=== PATIENT | male | born 1990 | race Caucasian/White ===

== ENCOUNTER 2025-02-13 23:35 | Emergency (ER) | payer OTHER ==
[~2025-02-13] VITALS: Ht 175.3 cm; Wt 90.7 kg
[2025-02-13 23:59] VITALS: BP 127/85
[2025-02-14] MEDS: IV NORMAL SALINE 1000 ML BAG IV ONE (00:04)
[2025-02-14] MEDS: diphenhydrAMINE 50 MG/1 ML VIAL IV ONE ×2 (00:07→01:32)
[2025-02-14] MEDS: ACETAMINOPHEN 500 MG TABLET PO ONE (00:08)
[2025-02-14 00:12] LABS: PLATELET COUNT (AUTO) 221 K/uL (152-348); RED BLOOD CELL COUNT(AUTO) 4.70 MIL/uL (4.06-5.63); RED CELL DISTRIBUTION WIDTH 12.9 % (12.1-16.2); WHITE BLOOD COUNT (AUTO) 7.4 K/uL (3.6-10.2)
[2025-02-14 00:20] LABS: CREATININE 0.8 mg/dL (0.6-1.3); SODIUM SERUM 142 mmol/L (136-145); UREA NITROGEN, BLOOD 10 mg/dL (7-18)
[2025-02-14 00:26] LABS: ASPARTATE AMINOTRANSFERASE 87 U/L (15-37); TOTAL PROTEIN, SERUM 7.2 g/dL (6.4-8.2)
[2025-02-14] MEDS ORDERED: POTASSIUM CHLORIDE 20 MEQ TAB.PRT.SR ONE (01:17)
[2025-02-14] MEDS ORDERED: EPIN0.3P3 IM (01:17)
[2025-02-14] MEDS ORDERED: DEXAMETHASONE SOD PHOSPHATE 4 MG INJ ONE (01:17)
[2025-02-14] MEDS ORDERED: diphenhydrAMINE 50 MG/1 ML VIAL ONE (01:17)
[2025-02-14] MEDS: POTASSIUM CHLORIDE 20 MEQ TAB.PRT.SR PO ONE (01:31)
[2025-02-14] MEDS: DEXAMETHASONE SOD PHOSPHATE 4 MG INJ IV ONE (01:32)
[2025-02-14 01:35] VITALS: BP 127/85; TEMP 98; O2SAT 96
== END 2025-02-14 01:36 | disposition home or self-care (01) ==
LOC: ER 23:35
DX: T78.2XXA Anaphylactic shock, unspecified, initial encounter (principal); R55 Syncope and collapse; R51.9 Headache, unspecified; E87.6 Hypokalemia; R06.02 Shortness of breath; L50.9 Urticaria, unspecified; Y92.89 Other specified places as the place of occurrence of the external cause
CPT/HCPCS: 99285; 70450; 80076; 80048; 83880; 85025; 85730; 84484; 36415; 93005; 96374; 96361; 96375; 96376; J1100; J1200 ×2; J7040; A4606; A4663; A9150